=== PATIENT | female | born 1970 | race Two or more races ===

== ENCOUNTER 2020-04-19 10:00 | Outpatient (CLI) | payer OTHER | END 2020-04-19 10:18 | disposition home or self-care (01) | LOC: SONOGRAMA 10:00 | PROVIDERS: ATTEND Pathology Anatomic Pathology & Clinical Pathology | DX: E04.1 Nontoxic single thyroid nodule (principal) ==

== ENCOUNTER 2020-08-31 06:43 | Day surgery (SDC) | payer OTHER | END 2020-08-31 17:20 | disposition home or self-care (01) | LOC: CIR.AMB 06:43 → AMB-ENDOS 08:30 → CIR.AMB 14:00 | PROVIDERS: ATTEND Surgery | DX: C50.812 Malignant neoplasm of overlapping sites of left female breast (principal); Z20.822 Contact with and (suspected) exposure to COVID-19 ==

== ENCOUNTER 2020-09-21 05:49 | Day surgery (SDC) | payer OTHER | END 2020-09-21 13:05 | disposition home or self-care (01) | LOC: CIR.AMB 05:49 | PROVIDERS: ATTEND Surgery | DX: C50.412 Malignant neoplasm of upper-outer quadrant of left female breast (principal); Z20.822 Contact with and (suspected) exposure to COVID-19 ==

== ENCOUNTER 2021-05-16 19:26 | Inpatient (IN) | payer OTHER ==
[~2021-05-16] VITALS: Ht 160 cm; Wt 54.4 kg
[2021-05-17] MEDS ORDERED: CELEBREX200MG PO ×2 (14:26→14:37)
[2021-05-17] MEDS ORDERED: ULTRAM50 MG PO ×2 (14:27→14:37)
[2021-05-17] MEDS ORDERED: GABAPENTIN100 M2 PO (14:30)
== END 2021-05-17 16:40 | disposition home or self-care (01) | DRG 512 ==
LOC: ER 19:26 → SURH 05-17 03:10
PROVIDERS: ADMIT Orthopaedic Surgery; ATTEND Orthopaedic Surgery
PROC: BW28ZZZ Computerized Tomography (CT Scan) of Head (ICD-10-PCS; 2021-05-17)
PROC: 0PSJ04Z Reposition Left Radius with Internal Fixation Device, Open Approach (ICD-10-PCS; principal; 2021-05-17 11:30)
DX: S52.502B Unspecified fracture of the lower end of left radius, initial encounter for open fracture type I or II (principal); M62.432 Contracture of muscle, left forearm; Z20.822 Contact with and (suspected) exposure to COVID-19

== ENCOUNTER 2021-06-19 09:00 | Outpatient (CLI) | payer OTHER ==
[~2021-06-19 09:00] MED LIST: CELEBREX200MG PO; GABAPENTIN100 M2 PO; ULTRAM50 MG PO
== END 2021-06-19 09:01 | disposition home or self-care (01) ==
LOC: RAD 09:00
PROVIDERS: ATTEND Orthopaedic Surgery
DX: S52.572D Other intraarticular fracture of lower end of left radius, subsequent encounter for closed fracture with routine healing (principal)

== ENCOUNTER 2021-07-18 14:44 | Outpatient (CLI) | payer OTHER | END 2021-07-18 14:52 | disposition home or self-care (01) | LOC: RAD 14:44 | PROVIDERS: ATTEND Orthopaedic Surgery | DX: S52.272D Monteggia's fracture of left ulna, subsequent encounter for closed fracture with routine healing (principal) ==

== ENCOUNTER 2021-09-05 09:47 | Outpatient (CLI) | payer OTHER ==
[2021-09-06] MEDS ORDERED: [UNRECOGNIZED DRUG - OTHER] PO (13:10)
== END 2021-09-05 10:01 | disposition home or self-care (01) ==
LOC: RAD 09:47
PROVIDERS: ATTEND Orthopaedic Surgery
DX: S52.572D Other intraarticular fracture of lower end of left radius, subsequent encounter for closed fracture with routine healing (principal)

== ENCOUNTER 2021-09-13 07:49 | Day surgery (SDC) | payer OTHER ==
[~2021-09-13 07:49] MED LIST changes: +[UNRECOGNIZED DRUG - OTHER] PO
== END 2021-09-13 14:30 | disposition home or self-care (01) ==
LOC: CIR.AMB 07:49
PROVIDERS: ATTEND Orthopaedic Surgery
DX: S52.572D Other intraarticular fracture of lower end of left radius, subsequent encounter for closed fracture with routine healing (principal); F41.9 Anxiety disorder, unspecified; M25.532 Pain in left wrist; Z85.3 Personal history of malignant neoplasm of breast; Z20.822 Contact with and (suspected) exposure to COVID-19

== ENCOUNTER 2021-12-02 08:00 | Inpatient (IN) | payer OTHER ==
[~2021-12-02] VITALS: Ht 160 cm; Wt 56.7 kg
[2021-12-05] MEDS ORDERED: TAMOXIFEN CITRA20 MG (08:43)
== END 2021-12-05 13:35 | disposition home or self-care (01) | DRG 743 ==
LOC: O/R 12-04 07:00 → SURG 12-04 08:00 → OB/GYN 12-04 17:52
PROVIDERS: ADMIT Obstetrics & Gynecology; ATTEND Obstetrics & Gynecology
PROC: 0UT74ZZ Resection of Bilateral Fallopian Tubes, Percutaneous Endoscopic Approach (ICD-10-PCS; 2021-12-04)
PROC: 0UT24ZZ Resection of Bilateral Ovaries, Percutaneous Endoscopic Approach (ICD-10-PCS; 2021-12-04)
PROC: 0UT94ZZ Resection of Uterus, Percutaneous Endoscopic Approach (ICD-10-PCS; principal; 2021-12-04 11:15)
DX: D25.1 Intramural leiomyoma of uterus (principal); D25.2 Subserosal leiomyoma of uterus; N80.0 Endometriosis of uterus; N83.291 Other ovarian cyst, right side; N83.292 Other ovarian cyst, left side; N72 Inflammatory disease of cervix uteri; Z20.822 Contact with and (suspected) exposure to COVID-19

== ENCOUNTER 2022-01-29 09:18 | Outpatient (CLI) | payer OTHER ==
[~2022-01-29 09:18] MED LIST changes: +TAMOXIFEN CITRA20 MG
== END 2022-01-29 09:24 | disposition home or self-care (01) ==
LOC: RAD 09:18
PROVIDERS: ATTEND Orthopaedic Surgery
DX: M25.532 Pain in left wrist (principal)

== ENCOUNTER 2022-01-29 12:33 | Outpatient (CLI) | payer OTHER | END 2022-01-29 12:37 | disposition home or self-care (01) | LOC: LAB 12:33 | PROVIDERS: ATTEND Orthopaedic Surgery | DX: E56.1 Deficiency of vitamin K (principal) ==